=== PATIENT | male | born 1965 | race Caucasian/White ===

== ENCOUNTER → 2023-08-30 07:11 | Outpatient (REF) | payer OTHER, SELFPAY | LOC: RCS 07:11 | PROVIDERS: ATTENDING PHYSICIAN Family Medicine | DX: E03.9 Hypothyroidism, unspecified (principal); N52.9 Male erectile dysfunction, unspecified; R01.1 Cardiac murmur, unspecified; Z98.890 Other specified postprocedural states; I48.91 Unspecified atrial fibrillation | CPT/HCPCS: 93306 ==

== ENCOUNTER 2023-10-06 07:19 | Day surgery (SDC) | payer OTHER, SELFPAY ==
--- NOTE | 2023-10-06 08:33 | ITS.CL.CARDI ---
[facility]inder - Cardioversion
Cardioversion
Procedure Report:
Date of Procedure: October 06 2023
Procedure: Cardioversion
Indication: Symptomatic atrial fibrillation
Performing Physician: Milton Peraza DO, FACC
Technique: The patient was brought to the holding area. Signed informed consent was obtained. A time out was called and performed. The patient was anesthetized by the anesthesia service. Anticoagulation status was reviewed and appropriate. R2 pads
were placed anteriorly and posteriorly. A 200 J synchronized biphasic shock restored normal sinus rhythm without significant bradycardia. There were no complications.
Conclusion: Uncomplicated cardioversion from atrial fibrillation to sinus rhythm.
Recommendation: Routine post cardioversion care. Continue snf anticoagulation.
== END 2023-10-06 09:15 | disposition home or self-care (01) ==
LOC: CATH 07:19
PROVIDERS: ATTENDING PHYSICIAN Nuclear Medicine Nuclear Cardiology; FAMILY PHYSICIAN Family Medicine
DX: I48.91 Unspecified atrial fibrillation (principal); Q67.6 Pectus excavatum; E03.9 Hypothyroidism, unspecified; Z79.01 Long term (current) use of anticoagulants
CPT/HCPCS: 92960; 93005

== ENCOUNTER → 2023-12-22 08:56 | Outpatient (REF) | payer OTHER, SELFPAY | LOC: PAVMRI 08:56 | PROVIDERS: ATTENDING PHYSICIAN Internal Medicine Cardiovascular Disease; FAMILY PHYSICIAN Family Medicine | DX: I48.91 Unspecified atrial fibrillation (principal) | CPT/HCPCS: 75561; 75565; A9585 ==

== ENCOUNTER → 2024-01-13 12:22 | Outpatient (REF) | payer OTHER, SELFPAY | LOC: RAD 12:22 | PROVIDERS: ATTENDING PHYSICIAN Family Medicine | DX: J90 Pleural effusion, not elsewhere classified (principal) | CPT/HCPCS: 71046 ==

== ENCOUNTER → 2024-01-20 14:00 | Outpatient (REF) | payer OTHER, SELFPAY | LOC: RAD 14:00 | PROVIDERS: ATTENDING PHYSICIAN Family Medicine | DX: J90 Pleural effusion, not elsewhere classified (principal) | CPT/HCPCS: 71260; Q9967 ==

== ENCOUNTER 2024-02-18 06:17 | Day surgery (SDC) | payer OTHER, SELFPAY ==
[2024-01-23 07:03] VITALS: BMI 27.4
[2024-01-23 07:36] LABS: % Basophils 1.1 % (0-2); % Eosinophils 2.6 % (0-6); % Immature Granulocytes 0.4 % (0-0.5); % Lymphocytes 31.9 % (20.5-51.1); % Monocytes 15.8 % (1.7-9.3); % Neutrophils 48.2 % (42.2-75.2); Absolute Eosinophils 0.1 10^3/uL (0-0.7); Absolute Lymphocytes 0.9 10^3/uL (1.2-3.4); Absolute Monocytes 0.4 10^3/uL (0.1-0.6); Absolute Neutrophils 1.3 10^3/uL (1.4-6.5); Hematocrit 38.6 % (39.0-52.0); Hemoglobin 13.9 g/dL (13.0-18.0); Mean Corpuscular Hgb 33.6 pg (27.0-31.0); Mean Corpuscular Volume 93.2 fL (80.0-94.0); Mean Platelet Volume 8.9 fL (7.4-10.4); Nucleated Red Blood Cells % 0 % (-); Platelet Count 141 10^3/uL (130-400); Red Blood Cell Count 4.14 10^6/uL (4.70-6.10); White Blood Cell Count 2.7 10^3/uL (4.8-10.8)
[2024-01-23 07:44] LABS: ALT (SGPT) 25 U/L (0-50); AST (SGOT) 39 U/L (17-59); Albumin 3.8 g/dl (3.5-5.0); Alkaline Phosphatase 110 U/L (38-126); Blood Urea Nitrogen 13 mg/dl (9-20); Carbon Dioxide 24 mmol/L (22-30); Chloride 105 mmol/L (98-107); Estimated Creatinine Clearance 96 ml/min; Glucose 103 mg/dl (70-99); Magnesium 1.6 mg/dl (1.6-2.3); Potassium 4.4 mmol/L (3.5-5.1); Sodium 134 mmol/L (135-145); Total Bilirubin 1.5 mg/dl (0.2-1.3); Total Protein 7.4 g/dl (6.3-8.2); eGFR > 60.00
[2024-01-23 08:14] LABS: INR 1.44; PT 17.3 Sec (11.4-14.6)
[2024-02-18] VITALS (12 sets, daily range): BP systolic 110–151; BP diastolic 63–88
--- NOTE | 2024-02-18 07:20 | ITS.CL.ABL ---
Vaccinator - Ablation
Ablation
Procedure Report:
Primary Technical Healthcare Consultant: Clinton Toro MD
Procedure Date: 02/18/2024
Patient History:
Patient is a pleasant 59-year-old male with a past medical history significant for pectus excavatum, pulmonary valve stenosis, VSD status postrepair as a child, symptomatic paroxysmal now persistent atrial fibrillation..
See H&P for complete details.
Indication:
Symptomatic persistent AF
Arrhythmia Specific History:
Prior Medical Therapies for Rate and Rhythm Control:
X Beta-hemalatha
[ ] Calcium channel-hemalatha
[ ] Amiodarone
[ ] Dronederone
[ ] Sotalol
[ ] Flecainide
[ ] Dofetilide
[ ] Options limited by bradycardia
[ ] Options limited by comorbid renal disease
Prior Procedural Therapies for AF/AFL:
[ ] Cardioversion
[ ] Pulmonary Vein Isolation
[ ] Posterior Wall Isolation
[ ] Additional lines (Specify)
[ ] Surgical Hassan-MAZE or PVI (Specify)
Procedure Performed:
X AF ablation procedure (27337) -- includes LA/CS pacing, trans-septal, 3D mapping, + ICE
[ ] +IV drug (41375)
[ ] +Other Arrhythmia (04934)
X +Other AF Line/ablation (94878) -- Posterior wall isolation
Risks and expected recovery has been explained in detail. Alternative options have been explored, and in a shared-decision making fashion we have decided that this was the most appropriate procedure.
Method
NPO status confirmed. Grounding pad applied. Defibrillator pads applied. Continuous surface ECG, pulse oximetry, and blood pressure were monitored. Procedure was performed under general anesthesia, with anesthesia services.
Both groins were clipped, prepped with Chloraprep, and draped in sterile fashion. Time out was called. Local anesthesia administered with bupivacaine. The right and left femoral veins were accessed for catheter placement, using ultrasound guidance,
micro-puncture needle/wire, and modified seldinger technique. [ ] sheaths were placed. The following catheters were used:
[ ] Tacticath SE (D/F Curve) ablation catheter
X Viewflex 9Fr ICE catheter
X Inquiry decapolar 6Fr diagnostic catheter
[ ] CRD Hex 6Fr
[ ] Arctic Front Advance Cryoballoon ([ ]28mm[ ]23mm)
[ ] Achieve Advance mapping catheter ([ ]15mm[ ]20mm)
X FlexCath Contour 10 Fr with PulseSelect PFA Catheter
X Advisor HD Grid Mapping Catheter, SE
[ ] Acuson AcuNav 8 Fr ICE catheter
[ ]Other: [ ]
Intracardiac ultrasound (ICE) was carefully advanced into the right atrium to guide sheath placement over a J-wire, catheter placement, guide trans-septal puncture, identify potential complications, identify anatomic structures and ensure proper
contact between ablation catheter and tissue.
Heparin was given prior to trans-septal puncture. Heparin was given to achieve and maintain a target ACT of 300-400 seconds throughout the procedure.
Trans-septal access was performed under ICE guidance. The trans-septal puncture was performed with a SafeSept wire through a Brockenbrough needle assembly through the steerable sheath. The wire was visualized as it entered the LSPV and system
advanced under ICE guidance and fluoroscopy into the LA. The Brockenbrough needle assembly, SafeSept wire and sheath dilator were removed under negative pressure. LA pressure was measured and recorded.
ICE and 3D mapping was performed to identify relevant cardiac structures. A careful 3D map was created to assess for regions of low-voltage and abnormal electrogram signals using HD grid mapping catheter and PulseSelect catheter. Additional mapping
was performed as outlined below.
Prior to ablation, glycopyrrolate was provided. PulseSelect catheter was advanced over J-wire to the ostium of each vein. Pulmonary vein isolation was performed with ostial and antral lesions in a circumferential manner. Contact was visualized via
EAM, ICE, fluoroscopy, and EGM signals. Posterior wall isolation was performed by anchoring the J-wire within the pulmonary vein and placing the PulseSelect catheter in contact with the posterior wall as visualized by aforementioned methods.
Following completion of ablation lesions, sinus rhythm was restored with a 200J synchronized DCCV and a post-ablation voltage/activation map was performed in sinus rhythm. Entrance and exit block were confirmed for each vein and the posterior wall.
Catheter and sheath were removed from the left atrium and post-ablation intracardiac echo evaluation was consistent with pre-ablation with no changes and no pericardial effusion and there is no left atrial thrombus or left ventricle thrombus seen.
Electrophysiology study was performed. Hemostasis was obtained with figure of 8 stitch for each groin and with manual pressure. Protamine was used for reversal.
Estimated Blood Loss
5 mL
Complications
None
Fluoroscopy: 3.2 minutes; 6.85 mGy; DAP 1.35
Baseline Intervals:
QRS: 74 ms
QT: 340 ms
QTc: 496 ms
Post-Procedure Intervals:
NJ: 198 ms
QRS: 72 ms
QT: 340 ms
QTc: 393 ms
AVWB: 430 ms
AERP: 600/270 ms
Recommendations
- Bedrest with straight-leg precautions as ordered
- Anticipate same day discharge if patient meeting clinical metrics
- Resume home medications as indicated
- Ok to resume anticoagulation tonight if patient and groin sites stable
- PPI daily for 30 days
- Plan for follow-up in office as scheduled
Ren Mulligan DO
Clinical Cardiac Flight Reservations Manager
cc: Clinton Toro MD; Albino Altamirano MD
[2024-02-18 08:30] LABS: ACT-LR - POC 329 Seconds (116-155)
[2024-02-18 08:45] LABS: ACT-LR - POC 329 Seconds (116-155)
[2024-02-18 09:49] LABS: ACT-LR - POC 168 Seconds (116-155)
[2024-02-18 11:05] LABS: ACT-LR - POC > 397 Seconds (116-155)
[2024-02-18 11:05] LABS: ACT-LR - POC > 397 Seconds (116-155)
--- NOTE | 2024-02-18 15:20 | W.PN.UPDATE ---
Update Note
Progress Note Update
59 yo WM s/p PVI/PFA (same day). He denies cp, sob, caleb diet, voiding, amb w/o dizziness, EKG SR, R fem c/d/i no HT. He will continue OAC eliquis at home tonight and metoprolol. We will add PPI for 30days. Activity restrictions reviewed. He will f/u
Dr. Rose in 2 mo. He is for d/c home after 3pm.
== END 2024-02-18 15:33 | disposition home or self-care (01) ==
LOC: CATH 06:17
PROVIDERS: ATTENDING PHYSICIAN Internal Medicine Cardiovascular Disease; FAMILY PHYSICIAN Family Medicine; OTHER PHYSICIAN Internal Medicine Cardiovascular Disease
DX: I48.19 Other persistent atrial fibrillation (principal); Z87.74 Personal history of (corrected) congenital malformations of heart and circulatory system; I37.0 Nonrheumatic pulmonary valve stenosis; J90 Pleural effusion, not elsewhere classified; Q67.6 Pectus excavatum; J98.11 Atelectasis; E03.9 Hypothyroidism, unspecified; Z79.01 Long term (current) use of anticoagulants; Z79.890 Hormone replacement therapy; Z79.899 Other long term (current) drug therapy
CPT/HCPCS: C1732; C1894; C1733; C1769; 36415; 75572; 76937; 80053; 83735; 85025; 85347; 85610; 86850; 86900; 86901; 93005; 93656; 93657; C1760; Q9967

== ENCOUNTER 2024-05-12 22:54 | Emergency (ER) | payer OTHER, SELFPAY ==
[2024-05-12 22:57] VITALS: BP 138/74
--- NOTE | 2024-05-12 23:50 | ED.GENMED ---
History of Present Illness
<ARDEN Sadler - Last Filed: 05/13/24 01:02>
General
Chief Complaint: Fall
Source: patient
Time Seen by Provider: 05/12/24 23:44
Nursing documentation reviewed up to this point in time: agreed with
History of Present Illness
History of Present Illness:
Pt is a 59 yo M with a history of a-fib who presents to the emergency department after falling down the stairs in his garage and landing on the cement and hitting his face. Pt comes in with a laceration on his nasal bridge and an abrasion on his
left upper lip that is currently bleeding. Pt denies LOC, dizziness, headache, N/V, epistaxis, hemoptysis, changes in vision, neck pain. Pt states that he has been on Eliquis since September and is compliant with taking it twice a day.
Review of Systems
<ARDEN Sadler - Last Filed: 05/13/24 01:02>
Review of Systems
Allergies reviewed?: Yes
Constitutional: Reports no symptoms
EENT: Reports mouth pain
Respiratory: Reports no symptoms
Cardiac: Reports no symptoms
ABD/GI: Reports no symptoms
Neurological: Reports no symptoms
Phy Exam
<ARDEN Sadler - Last Filed: 05/13/24 01:02>
General Physical Exam
General Presentation: no apparent distress
General age: appears stated age
General Skin: warm
General Habitus: normal
General Mental: alert
General Hydration: appears well hydrated
ENT Exam
ENT Exam: pharynx normal and other (Nasal swelling, laceration on nose, abrasion on left upper lip)
Cardiovascular Exam
Cardiovascular Exam: regular rate/rhythm
Pulmonary Exam
Pulmonary Exam: lungs clear
Skin Exam
Skin Exam: laceration
Course
<ARDEN Sadler - Last Filed: 05/13/24 01:02>
Orders/Labs/Results
Orders:
Orders
05/13/24 00:00
Nasal Bones, complete 3 Views [CR Nasal Bones Comp Min 3 View] Urgent
Comment:
Reason For Exam: FALL, NASAL CONTUSION, PAIN, SWELLING
05/13/24 00:01
Tetanus/Diphth/Acelpertussis [Adacel] 0.5 ml IM .ONCE ONE
05/13/24 00:08
CT Head W/o Iv Contrast Urgent
Reason For Exam: FALL, FACIAL/HEAD INJURY-ON ELIQUIS
05/13/24 00:44
Tranexamic Acid 1,000 mg .ROUTE .STK-MED ONE
05/13/24 01:05
Cephalexin Monohydrate [Keflex] 500 mg PO NOW STA
Vital Signs
Initial and Last Documented VS:
Initial Vital Signs
Temp Pulse Resp BP Pulse Ox
98.2 F 90 18 138/74 90
05/12/24 22:57 05/12/24 22:57 05/12/24 22:57 05/12/24 22:57 05/12/24 22:57
Last Documented Vital Signs
Temp Pulse Resp BP Pulse Ox
98.2 F 90 18 138/74 90
05/12/24 22:57 05/12/24 22:57 05/12/24 22:57 05/12/24 22:57 05/12/24 22:57
<Heather Vaughn DO - Last Filed: 05/13/24 01:18>
Orders/Labs/Results
Orders:
Orders
05/13/24 00:00
Nasal Bones, complete 3 Views [CR Nasal Bones Comp Min 3 View] Urgent
Comment:
Reason For Exam: FALL, NASAL CONTUSION, PAIN, SWELLING
05/13/24 00:01
Tetanus/Diphth/Acelpertussis [Adacel] 0.5 ml IM .ONCE ONE
05/13/24 00:08
CT Head W/o Iv Contrast Urgent
Reason For Exam: FALL, FACIAL/HEAD INJURY-ON ELIQUIS
05/13/24 00:44
Tranexamic Acid 1,000 mg .ROUTE .STK-MED ONE
05/13/24 01:05
Cephalexin Monohydrate [Keflex] 500 mg PO NOW STA
Vital Signs
Initial and Last Documented VS:
Initial Vital Signs
Temp Pulse Resp BP Pulse Ox
98.2 F 90 18 138/74 90
05/12/24 22:57 05/12/24 22:57 05/12/24 22:57 05/12/24 22:57 05/12/24 22:57
Last Documented Vital Signs
Temp Pulse Resp BP Pulse Ox
98.2 F 90 18 138/74 90
05/12/24 22:57 05/12/24 22:57 05/12/24 22:57 05/12/24 22:57 05/12/24 22:57
Procedures
<ARDEN Sadler - Last Filed: 05/13/24 01:02>
Laceration Closure
Middle Anterior Nose:
Status of Wound: clean
Description of Wound Edges: ragged
Preparation: cleaned with saline
Revision/Debridement: routine- no revision and irrigate-direct pressure
Wound exploration: explored to base- no FB
Type of Closure: Dermabond-skin glue
<ARDEN Sadler - Last Filed: 05/13/24 01:02>
*Critical Care Note
Total Time (30-74mins, 75-104mins- exclusive of procedures): Not Applicable
<Heather Vaughn DO - Last Filed: 05/13/24 01:18>
*Radiology
Radiology exam reviewed: preliminary read by ED provider (There is a small nondisplaced fracture distal aspect of the nasal bone on the right side.) and radiology read reviewed (CT of the head is unremarkable.)
*Pulse Oximetry
Patient hypoxic: no
ED Attending Note
<ARDEN Sadler - Last Filed: 05/13/24 01:02>
-
Portions of this chart may have been created with voice recognition software.� Occasional wrong word or��sound alike� substitutions may have occurred due to the inherent limitations of voice recognition software.
<Heather Vaughn DO - Last Filed: 05/13/24 01:18>
ED Attending Note
Patient seen and examined by attending physician: Yes
I performed the substantive portion of visit, reviewed & personally made and approve the management plan that is documented in note by myself or GODFREY.: Yes
ED Attending Note:
This is a 59-year-old gentleman who has history of PAF chronically maintained on Eliquis. While walking down 2 steps into his garage he missed the last step, fell forward striking his face on the concrete garage floor. He denies loss of
consciousness. Was able to get up and ambulate immediately after the fall. He has suffered a contusion and laceration to the bridge of his nose, moderate bilateral nostril epistaxis which stopped promptly with local pressure. He also suffered a
contusion with abrasion left upper lip. He has had slow persistent oozing of blood from the abrasion of his upper lip. He denies dental injury nor dental pain. He denies nasal pain. He denies headache, no neck nor back pain, no dizziness nor
lightheadedness.
Last Tdap December 2018.
TRAUMA EXAM:
VITAL SIGNS: Vital signs reviewed, cooperative
DISTRESS: No active disease
EYES: Pupils reactive, no orbital trauma
NOSE: There is a 1 cm laceration anterior mid aspect of the nose, deep dermal in depth. No active bleeding. There is moderate soft tissue swelling and mild ecchymosis at mid to proximal aspect of the nose without gross deformity and no palpable
tenderness. Dried blood bilateral nostrils without active epistaxis. No septal hematoma.
FACE AND SCALP: There is a 1.5 cm superficial abrasion left upper lip with focal soft tissue contusion. Scant intermittent oozing of blood from this abrasion. There is no laceration. No dental injury nor dental pain. External canals no blood
NECK: Supple nontender, full range of motion without difficulty nor pain.
BACK: Back nontender, pelvis stable to compression
RESPIRATORY: No distress, breath sounds normal, no tender chest wall
CARDIAC: No murmur, pulses equal and strong
ABDOMEN: Soft nontender bowel sounds normal
SKIN: Warm and dry, normal color. Good turgor.
EXTREMITIES: Nontender
NEUROLOGICAL: Alert, oriented, no motor deficits
PSYCH: Mood affect normal
As patient chronically maintained on Eliquis, facial injury will check CT of the head.
Will check nasal bone x-ray, concern for potential nasal bone fracture.
Will update Tdap.
Will plan for Dermabond repair of nasal laceration.
Scant oozing of blood from superficial abrasion left upper lip has subsided during my initial evaluation. Will continue to observe and if bleeding recurs will plan for topical coagulant such as TXA. This abrasion is superficial without associated
laceration.
Nasal laceration repaired with Dermabond by PA student under my direct supervision. Steri-Strip applied over wound glue.
Scant recurrent bleeding from upper lip abrasion has been treated with topical TXA with resolution of bleeding.
Nasal bone x-ray reveals a small nondisplaced fracture distal aspect of the right side of the nasal bone. Due to overlying laceration this is potentially an open fracture this patient will be placed on a course of Keflex for infection prevention.
Will refer to ENT for follow-up.
Awaiting CT of the head results.
Discharge Plan
Departure
Patient Disposition: Home (Routine Discharge)
Date of Disposition: 05/13/24
Time of Disposition: 01:11
Patient with high blood pressure during this ER visit?: No
Condition: Good
Discharge Problem:
Nasal bone fx-open, Laceration of nose, upper lip abrasion with contusion
Instructions: Laceration Repair With Glue (DC), Skin Abrasions (DC), Tdap vaccine, Nose Fracture ED
Prescriptions:
New
cephalexin 500 mg capsule
1,000 mg PO BID 7 Days Qty: 28 0RF
No Action
levothyroxine 112 mcg Tablet
112 mcg PO DAILY
metoprolol tartrate 25 mg Tablet
25 mg PO DAILY
Eliquis 5 mg Tablet
5 mg PO BID
pantoprazole [Protonix] 40 mg tablet,delayed release (DR/EC)
40 mg PO DAILY Qty: 30 0RF
Referrals:
Albino Altamirano MD [Family Provider] - Call in 1-3 days for appt
Juan Meyer MD [Active] - Call in 1-3 days for appt
Interventions
Interventions:
*Risk Screen - Suicide Last Done: 05/12/24 22:57
*Neglect/Abuse Screening Last Done: 05/12/24 22:57
*ED COVID-19 Vaccine History Last Done: 05/12/24 23:00
ED-Musculoskeletal Assessment Last Done: 05/13/24 00:30
ED- Neurological Assessment Last Done: 05/13/24 00:30
ED-Skin Assessment Last Done: 05/13/24 00:30
Discharge Date and Time
Print Language: BELARUSIAN
[2024-05-13] MEDS: ADACEL 0.5 ML IM (00:07)
[2024-05-13] MEDS: KEFLEX 500 MG PO (01:09)
[2024-05-13 01:23] VITALS: BP 126/78
== END 2024-05-13 01:24 | disposition home or self-care (01) ==
LOC: EMR 22:54
PROVIDERS: EMERGENCY PHYSICIAN Emergency Medicine; FAMILY PHYSICIAN Family Medicine
DX: S02.2XXA Fracture of nasal bones, initial encounter for closed fracture (principal); S00.511A Abrasion of lip, initial encounter; S00.531A Contusion of lip, initial encounter; W10.9XXA Fall (on) (from) unspecified stairs and steps, initial encounter; I48.91 Unspecified atrial fibrillation; Z79.01 Long term (current) use of anticoagulants
CPT/HCPCS: 12011; 90471; 99284; 70160; 70450; 90715